=== PATIENT | male | born 1960 | race Caucasian/White ===

== ENCOUNTER 2016-11-05 15:31 | Emergency (ER) | payer MEDICARE ==
[~2016-11-05] VITALS: Ht 182.9 cm; Wt 135.7 kg
[2016-11-05 15:33] VITALS: BP_SYST 169; BP_SYST 173; BP_DIAS 87; BP_DIAS 97; PULSE 95; RESP 16; TEMP 98.3; O2SAT 97
[2016-11-05] MEDS ORDERED: TIZA4CAP3 PO (16:07)
[2016-11-05] MEDS ORDERED: DULO1CAP3 PO (16:07)
[2016-11-05] MEDS ORDERED: CLON1TAB PO (16:08)
[2016-11-05] MEDS ORDERED: MORP1TAB25 PO (16:08)
--- NOTE | 2016-11-05 16:08 | PD ---
HPI Chief Complaint: Hypertension Time Seen by Provider: 15:39 Travel History International Travel<30 days: No Contact w/Intl Traveler<30days: No Traveled to known affect area: No History of Present Illness HPI 56yo M with PMH of HLD presents to the ED with c/o episodes of diaphoresis and elevated blood pressure since after he got a corticosteroid injection for his back pain. Pt states he has had this injection many times before and has had spikes in his blood pressure before but never diagnosed with elevated blood pressure or put on medication for it. He states that sometimes these episodes are associated with nausea and sometimes with headache. Pt currently does not have any headache, nausea, vomiting, chest pain, sob, focal weakness or numbness. States these episodes lasts 5-10 minutes and last episode was about 2 hours ago. Pt has been keeping track of his blood pressure and is recording it frequently. States he call the place who did the epidural injection and they said this may be a response to the epidural steroid injection. PFSH Past Medical History Hx Anticoagulant Therapy: No Cardiovascular Problems: Yes (CHOL) Diabetes: No Social History Tobacco Use: Yes Allergies-Medications (Allergen,Severity, Reaction): Coded Allergies: No Known Allergies (Unverified , 11/05/16) Reported Meds & Prescriptions Reported Meds & Active Scripts Active Reported Morphine ER (Morphine Sulfate) 60 Mg Tab 60 Mg PO Q8H Clonazepam 1 Mg Tab 1 Mg PO BID Morphine ER (Morphine Sulfate) 30 Mg Tab 30 Mg PO BID Tizanidine (Tizanidine HCl) 4 Mg Cap 4 Mg PO TID Duloxetine DR (Duloxetine HCl) 60 Mg Capdr 60 Mg PO DAILY Review of Systems Except as stated in HPI: all other systems reviewed are Neg Physical Exam Narrative GENERAL: 56yo M not in distress. SKIN: Focused skin assessment warm/dry. HEAD: Atraumatic. Normocephalic. EYES: Pupils equal and round. No scleral icterus. No injection or drainage. ENT: No nasal bleeding or discharge. Mucous membranes pink and moist. NECK: Trachea midline. No JVD. CARDIOVASCULAR: Regular rate and rhythm. No murmur appreciated. RESPIRATORY: No accessory muscle use. Clear to auscultation. Breath sounds equal bilaterally. GASTROINTESTINAL: Abdomen soft, mild epigastric discomfort when palpated. No rebound tenderness or guarding. MUSCULOSKELETAL: No obvious deformities. No clubbing. No cyanosis. No edema. NEUROLOGICAL: Awake and alert. No obvious cranial nerve deficits. Motor grossly within normal limits. Normal speech. PSYCHIATRIC: Appropriate mood and affect; insight and judgment normal. Data Data Last Documented VS Vital Signs Date Time Temp Pulse Resp B/P Pulse Ox O2 Delivery O2 Flow Rate FiO2 11/05/16 16:02 77 16 100 Room Air 11/05/16 15:33 98.3 169/87 173/97 Orders Electrocardiogram (11/05/16 ) Complete Blood Count With Diff (11/05/16 15:56) Basic Metabolic Panel (Bmp) (11/05/16 15:56) Lipase (11/05/16 15:56) Troponin I (11/05/16 15:56) Aspirin (Aspirin) (11/05/16 16:30) Ondansetron Inj (Zofran Inj) (11/05/16 16:30) Labs Laboratory Tests Test 11/05/16 16:00 White Blood Count 12.8 TH/MM3 Red Blood Count 4.73 MIL/MM3 Hemoglobin 14.5 GM/DL Hematocrit 42.8 % Mean Corpuscular Volume 90.5 FL Mean Corpuscular Hemoglobin 30.6 PG Mean Corpuscular Hemoglobin 33.9 % Concent Red Cell Distribution Width 13.5 % Platelet Count 219 TH/MM3 Mean Platelet Volume 8.9 FL Neutrophils (%) (Auto) 70.2 % Lymphocytes (%) (Auto) 19.0 % Monocytes (%) (Auto) 5.2 % Eosinophils (%) (Auto) 0.9 % Basophils (%) (Auto) 4.7 % Neutrophils # (Auto) 8.9 TH/MM3 Lymphocytes # (Auto) 2.4 TH/MM3 Monocytes # (Auto) 0.7 TH/MM3 Eosinophils # (Auto) 0.1 TH/MM3 Basophils # (Auto) 0.6 TH/MM3 CBC Comment DIFF FINAL Differential Comment Sodium Level 140 MEQ/L Potassium Level 5.1 MEQ/L Chloride Level 103 MEQ/L Carbon Dioxide Level 31.2 MEQ/L Anion Gap 6 MEQ/L Blood Urea Nitrogen 15 MG/DL Creatinine 0.87 MG/DL Estimat Glomerular Filtration 91 ML/MIN Rate Random Glucose 93 MG/DL Calcium Level 9.2 MG/DL Troponin I 0.02 NG/ML Lipase 82 U/L [facility] Medical Decision Making Medical Screen Exam Complete: Yes Emergency Medical Condition: Yes Interpretation(s) EKG: NSR 79bpm. LAD. LVH. 1mm ST segment elevation V1, V2, V3. TWI aVL. Differential Diagnosis Atypical ACS vs. anxiety vs. GERD vs. uncontrolled HTN Narrative Course 56yo M with complaint of episodes of diaphoresis that sometimes accompanies nausea and sometimes headache. Pt states that sometimes he also has numbness in his hand. Pt may have an atypical presentation of ACS. BP is 169/87. EKG dose show LVH and mild ST elevation in anterior leads but pt has no chest pain or sob. No prior to compare. I discussed with vaccine manager Dr. Garcia and the ST elevations look like normal variants. Pt did have an episode of diaphoresis and nausea here in the ED. I recommended observation in chest pain center and discussed with Dr. Howard. However, pt is refusing to stay and is going to sign out against medical advice. AMA: The risks of leaving against medical advice without further evaluation treatment were discussed with the patient. These risks include cardiac dysfunction, cardiac dysrhythmia, possible heart attack, possible stroke or . The patient indicated understanding of these risks and appeared to have the capacity to make this decision. Diagnosis Primary Impression: Diaphoresis Patient Instructions: General Instructions Departure Forms: Tests/Procedures Additional Instructions: Please return to the ED if you change your mind. Please follow up with your PMD as outpatient. Med/Other Pt SpecificInfo: No Change to Meds Disposition: 07 AGAINST MEDICAL ADVICE Condition: Stable Giselle Pablo Nov 05, 2016 16:08
[2016-11-05] MEDS ORDERED: MORP1TAB26 PO (16:09)
[2016-11-05 16:24] LABS: AUTOMATED NEUTROPHIL # 8.9 TH/MM3 (1.8-7.7); BASOPHIL # 0.6 TH/MM3 (0-0.2); BASOPHIL % 4.7 % (0.0-2.0); EOSINOPHIL # 0.1 TH/MM3 (0-0.4); EOSINOPHIL % 0.9 % (0.0-4.0); HEMATOCRIT 42.8 % (39.0-51.0); HEMO FLAGS DIFF FINAL; LYMPHOCYTE # 2.4 TH/MM3 (1.0-4.8); MEAN CELL VOLUME 90.5 FL (80.0-100.0); MEAN CORPUSCULAR HEMOGLOBIN 30.6 PG (27.0-34.0); MEAN CORPUSCULAR HGB CONC 33.9 % (32.0-36.0); MONO % 5.2 % (0.0-8.0); NEUT % 70.2 % (16.0-70.0); PLATELET COUNT 219 TH/MM3 (150-450); RED BLOOD COUNT 4.73 MIL/MM3 (4.50-5.90); RED CELL DISTRIBUTION WIDTH 13.5 % (11.6-17.2); WHITE BLOOD COUNT 12.8 TH/MM3 (4.0-11.0)
[2016-11-05] MEDS ORDERED: ASPIRIN 325 MG TAB PO ONE (16:30)
[2016-11-05] MEDS ORDERED: ONDANSETRON HCL 4 MG/2 ML VIAL IV PUSH ONE (16:30)
[2016-11-05 16:31] LABS: POTASSIUM 5.1 MEQ/L (3.5-5.1)
[2016-11-05 16:36] LABS: BICARBONATE 31.2 MEQ/L (21.0-32.0)
--- NOTE | 2016-11-05 17:42 | HHI.HP ---
[facility] No Primary Care Physician Admission Diagnosis Diagnoses: Chief Complaint: Diaphoretic episodes associated with elevated blood pressure Travel History International Travel<30 Days: No Contact w/Intl Traveler <30 Da: No Traveled to Known Affected Are: No History of Present Illness Patient is a 56-year-old gentleman with a history of obesity and hyperlipidemia. He has come to the emergency room with 10 days of increased intermittent blood pressure associated with diaphoresis and tingling in his hands. He certainly his hands and feet for some time and this is not new however 2 days ago he did get an epidural for chronic lumbar ago. This is done in his primary pain management doctor's office. Normally he takes narcotics for pain as well as muscle relaxant. The epidurals did well with his back pain however since that time he isn't having increasing flashes of sweating, tingling in his extremities and also elevated blood pressures. His accompanies him and has brought in a list of his blood pressures. During these flares his blood pressure has recently sized to 34/110. He does not take blood pressure medications. He was prescribed antilipid therapy does not take that currently. He has recently quit drinking and decreased his tobacco usage. He denies any fevers or chills. He has not had any nausea. There is no jaja chest pain tightness or palpitations. This time patient is an emergency room for the evaluation of same. His EKG shows no signs of ischemia on my review does have some left ventricular hypertrophy consistent with probable underlying hypertension. Patient has had a history of panic attacks but notes this is not similar to any previous panic attack. Patient recommended for observation for issues Review of Systems Constitutional: COMPLAINS OF: Diaphoretic episodes, Dizziness, DENIES: Fatigue , Fever, Weight gain, Weight loss, Chills, Change in appetite, Night Sweats Endocrine: DENIES: Heat/cold intolerance, Polydipsia, Polyuria, Polyphagia Eyes: DENIES: Blurred vision, Diplopia, Eye inflammation, Eye pain, Vision loss , Photosensitivity, Double Vision Ears, nose, mouth, throat: DENIES: Tinnitus, Hearing loss, Vertigo, Nasal discharge, Oral lesions, Throat pain, Hoarseness, Ear Pain, Running Nose, Epistaxis, Sinus Pain, Toothache, Odynophagia Respiratory: DENIES: Apneas, Cough, Snoring, Wheezing, Hemoptysis, Sputum production, Shortness of breath Cardiovascular: DENIES: Chest pain, Palpitations, Syncope, Dyspnea on Exertion , PND, Lower Extremity Edema, Orthopnea, Claudication Gastrointestinal: DENIES: Abdominal pain, Black stools, Bloody stools, Constipation, Diarrhea, Nausea, Vomiting, Difficulty Swallowing, Anorexia Genitourinary: DENIES: Sexual dysfunction, Urinary frequency, Urinary incontinence, Urgency, Hematuria, Dysuria, Nocturia, Penile Discharge, Testicular Pain, Testicular Swelling Musculoskeletal: DENIES: Joint pain, Muscle aches, Stiffness, Joint Swelling, Back pain, Neck pain Integumentary: DENIES: Abnormal pigmentation, Nail changes, Pruritus, Rash Hematologic/lymphatic: DENIES: Bruising, Lymphadenopathy Immunologic/allergic: DENIES: Eczema, Urticaria Neurologic: DENIES: Abnormal gait, Headache, Localized weakness, Paresthesias, Seizures, Speech Problems, Tremor, Poor Balance Psychiatric: COMPLAINS OF: Anxiety, DENIES: Confusion, Mood changes, Depression, Hallucinations, Agitation, Suicidal Ideation, Homicidal Ideation, Delusions Past Family Social History Past Medical History Anxiety Chronic back pain and neuropathy Past Surgical History Denies Reported Medications Reviewed in the medical record, recent epidural Allergies: Coded Allergies: No Known Allergies (Unverified , 11/05/16) Active Ordered Medications Reviewed in the medical record Family History Other from a stroke in his 70s, mother had undisclosed cancer, hypertension and diabetes and at 94 Social History , pack a day tobacco Recently quit alcohol which was whiskey daily Physical Exam Vital Signs Vital Signs Date Time Temp Pulse Resp B/P Pulse Ox O2 Delivery O2 Flow Rate FiO2 11/05/16 16:02 77 16 100 Room Air 11/05/16 15:33 98.3 95 16 169/87 97 173/97 Physical Exam GENERAL: This is a well-nourished, well-developed patient,anxious. SKIN: No rashes, ecchymoses or lesions. Cool and dry. HEAD: Atraumatic. Normocephalic. No temporal or scalp tenderness. EYES: Pupils equal round and reactive. Extraocular motions intact. No scleral icterus. No injection or drainage. ENT: Nose without bleeding, purulent drainage or septal hematoma. Throat without erythema, tonsillar hypertrophy or exudate. Uvula midline. Airway patent. NECK: Trachea midline. No JVD or lymphadenopathy. Supple, nontender, no meningeal signs. CARDIOVASCULAR: Regular rate and rhythm without murmurs, gallops, or rubs. RESPIRATORY: Clear to auscultation. Breath sounds equal bilaterally. No wheezes , rales, or rhonchi. GASTROINTESTINAL: Abdomen soft, non-tender, nondistended. No hepato-splenomegaly , or palpable masses. No guarding. MUSCULOSKELETAL: Extremities without clubbing, cyanosis, or edema. No joint tenderness, effusion, or edema noted. No calf tenderness. Negative Homans sign bilaterally. NEUROLOGICAL: Awake and alert. Cranial nerves II through XII intact. Motor and sensory grossly within normal limits. Five out of 5 muscle strength in all muscle groups. Normal speech. Laboratory Laboratory Tests Test 11/05/16 16:00 White Blood Count 12.8 Red Blood Count 4.73 Hemoglobin 14.5 Hematocrit 42.8 Mean Corpuscular Volume 90.5 Mean Corpuscular Hemoglobin 30.6 Mean Corpuscular Hemoglobin 33.9 Concent Red Cell Distribution Width 13.5 Platelet Count 219 Mean Platelet Volume 8.9 Neutrophils (%) (Auto) 70.2 Lymphocytes (%) (Auto) 19.0 Monocytes (%) (Auto) 5.2 Eosinophils (%) (Auto) 0.9 Basophils (%) (Auto) 4.7 Neutrophils # (Auto) 8.9 Lymphocytes # (Auto) 2.4 Monocytes # (Auto) 0.7 Eosinophils # (Auto) 0.1 Basophils # (Auto) 0.6 CBC Comment DIFF FINAL Differential Comment Sodium Level 140 Potassium Level 5.1 Chloride Level 103 Carbon Dioxide Level 31.2 Anion Gap 6 Blood Urea Nitrogen 15 Creatinine 0.87 Estimat Glomerular Filtration 91 Rate Random Glucose 93 Calcium Level 9.2 Troponin I 0.02 Lipase 82 Result Diagram: 11/05/16 1600 11/05/16 1600 Assessment and Plan Problem List: (1) Back pain ICD Code: M54.9 Status: Acute Plan: continue home medications including Zanaflex, morphine and Cymbalta. He follows up with pain management and will continue to do the same Recent epidural with good relief (2) HTN (hypertension) ICD Code: I10 Status: Acute Plan: Add lisinopril, monitor overnight Echocardiogram pending tsh, cardiac enzymes pending Assessment and Plan patient has decided to leave AMA Code Status full code Discussed Condition With patient, er md Howard,Malena Trujillo MD Nov 05, 2016 17:42
--- NOTE | 2016-11-05 21:45 | EKG ---
Date Performed: 11/05/2016 Time Performed: 16:05:09 PTAGE: 56 years EKG: Sinus rhythm POSSIBLE LEFT ATRIAL ENLARGEMENT INCOMPLETE RIGHT BUNDLE BRANCH BLOCK POSSIBLE LEFT VENTRICULAR HYPE RTROPHY Mild anteroseptal ST elevation -repolarization versus injury. Clinical correlation is recomme nded ABNORMAL ECG NO PREVIOUS TRACING DOCTOR: Guillaume Galloway Interpretating Date/Time 11/05/2016 21:43:33
== END 2016-11-05 18:02 | disposition home or self-care (01) ==
LOC: PHED 15:31
DX: M54.9 Dorsalgia, unspecified (principal); I10 Essential (primary) hypertension; R61 Generalized hyperhidrosis; R51 Headache; R11.0 Nausea; Z72.0 Tobacco use
CPT/HCPCS: 80048; 83690; 84484; 85025; 93005; 96374; 99284; J2405